=== PATIENT | female | born 2000 | race African-American/Black ===

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

== ENCOUNTER 2020-07-17 18:14 | Emergency (ER) | payer BC, SELFPAY ==
[2020-07-17 18:15] VITALS: BP 132/95; PULSE 99; RESP 16; TEMP 36.6; O2SAT 99; BMI 24.2
[2020-07-17 18:27] VITALS: BP 130/89; PULSE 95; RESP 18; O2SAT 98
--- NOTE | 2020-07-17 18:45 | ED.DCSUM_ITS ---
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 Currently being treated for UTI on Bactrim. Says last night has had intermittent episodes of accelerated heart rate. No syncope. No history of DVT or PE. No recent travel, surgery or immobilization. She is not on control. Physical Examination: Appearing 20-year-old female no acute distress vital signs stable afebrile. Current heart rate 95. Pulse ox 90% on room air no signs hypoxia. H EENT exam unremarkable. Neck nontender no JVD. Lungs clear to auscultation bilaterally. Heart regular rhythm no murmur. Rate about 92-98 on my exam. Chest were nontender. Abdomen soft nontender. Normal bowel sounds no peritoneal signs. Remedies moves all 4. Calves are nontender without edema or cords. Neurologically she is awake alert with no focal motor deficits. Skin unremarkable. Back unremarkable. Test Results: EKG shows normal sinus rhythm rate of 96 with no acute signs of WI or ischemia. Currently not in SVT. Normal. White count 9 hemoglobin 15. Electrolytes normal. Troponin normal. Chest x-ray portable 1 view shows no acute abnormality. Normal cardiac silhouette. Read both by myself and radiologist. Emergency Department Course and Treatment: Patient with a known history of PSVT with intermittent accelerated heart rate. Currently not in that. Repeat exam patient doing well at 8:45 PM. She is had no further episodes of accelerated heart rate here. She will be discharged home. He is comfortable with the plan. Treatment Plan: Continue her current medications. Return if worse. Disposition: Discharge Impression: Palpitations History of prior SVT This note was generated with [employer] dictation software. It may contain incorrect words, spelling, and punctuation that were not noted in review of the chart prior to signing ED Disposition - Plan for ED Patient: Referrals: Care Physician,No Primary [Primary Care Provider] -
[2020-07-17 19:01] VITALS: O2SAT 99
--- NOTE | 2020-07-17 19:10 | RAD_ITS ---
STUDY: X-RAY CHEST REASON FOR EXAM: Female, 20 years old. palpitations TECHNIQUE: AP portable COMPARISON: None. FINDINGS: The lungs are clear and expanded. There is no demonstrated pleural abnormality. Normal size heart. Normal mediastinum and greer. Normal visualized pulmonary arteries. Normal visualized aortic arch and descending thoracic aorta. Normal visualized thoracic spine. Normal visualized ribs, clavicles, and shoulders. There is no demonstrated abnormality of the visualized soft tissue structures of the upper abdomen. RAD/Chest 1 View (Portable) IMPRESSION: Normal x-ray examination of the chest. Electronically Signed: Xu Dao MD at 19:24 EDT , Service support ,
[2020-07-17 19:35] LABS: Absolute Neutrophil Count 3.6 X10^3/uL (2.0-7.7); Basophil# 0.03 X10^3/uL; Basophil% 0.4 % (0-1); Eosinophil# 0.27 X10^3/uL; Eosinophils% 3.8 % (0-5); Hematocrit 44.5 % (37-47); Hemoglobin 15.1 g/dL (12.0-15.0); Lymphocyte % 36.6 % (19-41); Mean Corp Hgb Conc 33.9 g/dL (32-36); Mean Corpuscular Hgb 29.4 pg (27.0-32.0); Mean Corpuscular Volume 86.7 fL (81-99); Mean Platelet Vol. 9.2 fl (6.2-12.0); Monocyte# 0.64 X10^3/uL; NRBC Flagged by Analyzer 0 % (0-5); Neutrophil # 3.55 X10^3/uL (2.7-7.7); Neutrophil % 49.9 % (47-70); Platelet Count 400 K/mm3 (150-450); RBC Distribution Width CV 12.5 % (11.6-14.6); RBC Distribution Width SD 39.8 fl (35.1-43.9); Red Blood Count 5.13 M/mm3 (4.2-5.4); White Blood Count 7.1 K/mm3 (4.4-11.0)
--- NOTE | 2020-07-17 19:47 | EKG12_ITS ---
Test Reason : PALPS Blood Pressure : / mmHG Vent. Rate : 096 BPM Atrial Rate : 096 BPM P-R Int : 130 ms QRS Dur : 082 ms QT Int : 346 ms P-R-T Axes : 045 058 011 degrees QTc Int : 437 ms Normal sinus rhythm Normal ECG Confirmed by ANNY MAZARIEGOS, GRACY ([id number]), newspaper editor managing EZIO CALVILLO ([id number]) on 07/23/2020 10:17:22 AM Referred By: CHONG Confirmed By:GRACY MCCORMICK MD
[2020-07-17 19:50] LABS: Anion Gap 5 (5-15); BUN 11 mg/dL (7-18); BUN/Creat Ratio 12.1 RATIO (10-20); Calcium,Total 9.1 mg/dL (8.5-10.1); Chloride 109 mmol/L (98-107); Creatinine, Serum 0.91 mg/dL (0.55-1.02); EST Glomerular Filtration Rate 84 mL/min (>60); Est Glom Filt Rate - Afr Amer 101 mL/min (>60); Estimated Creatinine Clearance 103.06 ml/min; Glucose 92 mg/dL (74-106); Potassium 3.9 mmol/L (3.5-5.1); Sodium Level 139 mmol/L (136-145)
--- NOTE | 2020-07-17 21:03 | ED.DEP ---
ED Disposition - Plan for ED Patient: Disposition: Home or Assisted Living Instructions: ED Palpitations Referrals: Andrew Navas MD [STAFF PHYSICIAN] - As Needed Additional Instructions: Continue your current medications. Follow-up with your doctor or a local primary care physician as needed. Return if feeling worse.
[2020-07-17 21:09] VITALS: BP 114/76; PULSE 81; RESP 18; O2SAT 98
== END 2020-07-17 21:10 | disposition home or self-care (01) ==
PROVIDERS: Emergency Provider Emergency Medicine
DX: R00.2 Palpitations (principal); N39.0 Urinary tract infection, site not specified; F41.9 Anxiety disorder, unspecified; F90.9 Attention-deficit hyperactivity disorder, unspecified type; Z79.2 Long term (current) use of antibiotics; Z86.79 Personal history of other diseases of the circulatory system; Z79.899 Other long term (current) drug therapy
CPT/HCPCS: 71045; 80048; 84484; 85025; 93005; 99283; A4216

== ENCOUNTER 2020-08-03 13:55 | Emergency (ER) | payer BC, SELFPAY ==
[2020-08-03 13:55] VITALS: BP 141/92; PULSE 84; RESP 16; TEMP 36.2; O2SAT 100; BMI 25.2
--- NOTE | 2020-08-03 14:03 | ED.DCSUM_ITS ---
History of Present Illness Chief Complaint: Dental Informant: Patient Onset: Yesterday Context: Gradual Onset Timing: Continuous Current Severity: Moderate Maximum Severity: Moderate Narrative: The patient is an otherwise healthy 20-year-old female who presents to the emergency department dental pain. Patient states that she has a known cavity in her left lower jaw. She states today, she began to get a dull ache in that area. States feels that it spreading to her face. She denies any trouble speaking or swallowing. She denies fever or chills. She states she did see a dentist about 3 months ago just for cleaning. She denies any trauma to the area. Prior similar symptoms: No Recent Illness/Hospitalization: No Past Medical History - Allergies and Home Meds Allergies/Adverse Reactions: Allergies No Known Allergies Allergy (Verified 08/03/20 13:55) Primary Care Physician: Care Physician,No Primary [Primary Care Provider] - Prior records reviewed: Yes Past Medical History: None Surgical History: no surgical history Smoking Status: Never smoker Review of Systems General: Denies: Chills, Fever, Sweats Eyes: Denies: Visual changes - bilaterally, Diplopia ENT: Reports: - - Dental pain. Denies: Rhinorrhea, Sore throat Cardiovascular: Denies: Chest pain, Palpitations Respiratory: Denies: Dyspnea, Cough, Dyspnea on exertion Gastrointestinal: Denies: Abdominal pain, Nausea, Vomiting, Diarrhea, Melena, Hematochezia Genitourinary: Denies: Dysuria, Hematuria, Frequency Musculoskeletal: Denies: Back pain, Extremity Pain Skin: Denies: Rash, Wounds Neurological: Denies: Headache, Weakness, Numbness Physical Exam Vital Signs/Narrative: Vital Signs Temp Pulse Resp BP Pulse Ox 08/03/20 13:55 97.1 F L 84 16 141/92 H 100 Inital Vital Signs reviewed: Yes General: Well nourished, Well developed, No Acute Distress Head: Normocephalic, Atraumatic Eyes: Perrl, EOMI ENT: Moist mucous membranes, No rhinorrhea, - - There is mild widespread dental caries. She has market tenderness to palpation at tooth #17. There is some erythema of the gumline and directly behind appears to have an impacted wisdom tooth. There is no trismus or stridor. The submental space is soft. Neck: Supple, Nontender Cardiovascular: Regular rate, Regular rhythm, No murmurs Respiratory: No distress, CTA bilaterally, Chest nontender Abdomen: Soft, Nontender, Nondistended, Normal bowel sounds Back: Nontender, Normal Inspection Extremities: Nontender, No edema Skin: Normal color, No rash Neurological: Alert, Oriented x3, Cranial nerves II-XII grossly intact, Normal Strength, Normal Sensation Psychological: Normal affect, Normal Mood Diagnostic/Tx/Re-eval - Medical Decision Making Patient presents with dental pain likely secondary to cavity with periapical abscess. There is no evidence of Mike angina. She has no trismus or stridor. The submental space is soft. The patient will be treated with anti- inflammatories and antibiotics along with given outpatient dental resources. Sh e will be discharged home. Impression Periapical abscess tooth 18 ED Disposition - Plan for ED Patient: Instructions: ED ABSCESS DENTAL Prescriptions: Amox/Clavulanate Tablet [Augmentin Tablet] 875 mg PO Q12H #20 tab Prescription Printed Ibuprofen [Motrin] 800 mg PO TID PRN PRN #20 tab PRN Reason: Pain Or Fever Prescription Printed Referrals: Care Physician,No Primary [Primary Care Provider] -
[2020-08-03] MEDS: Amox/Clavulanate 875 MG Tablet PO (14:17)
[2020-08-03] MEDS: Ibuprofen 600 MG Tablet PO (14:17)
== END 2020-08-03 14:22 | disposition home or self-care (01) ==
LOC: ED 14:15
PROVIDERS: Emergency Provider Emergency Medicine
DX: K04.7 Periapical abscess without sinus (principal)
CPT/HCPCS: 99283

== ENCOUNTER 2022-09-13 04:57 | Emergency (ER) | payer BC, SELFPAY ==
[2022-09-13 04:58] VITALS: BP 106/65; PULSE 99; RESP 16; TEMP 37.3; O2SAT 97; BMI 23.1
--- NOTE | 2022-09-13 05:06 | CT_ITS ---
EXAM: CT abdomen and pelvis with contrast. HISTORY: abdominal pain -- IV PO Contrast TECHNIQUE: CT Abdomen And Pelvis W/ Contrast Injection. A radiation dose optimization technique was used for this scan. COMPARISON: Noncontrast CT of the abdomen and pelvis from September 26, 2019. LIMITATIONS: None. LOWER CHEST: Normal. LIVER: Normal. GALLBLADDER: Normal. BILE DUCTS: Normal. PANCREAS: Normal. SPLEEN: Normal. ADRENAL GLANDS: Normal. KIDNEYS/URETERS/BLADDER: Normal. AORTA: Normal caliber. BOWEL/MESENTERY: No small bowel obstruction. No definite colitis. Mesenteric lymph nodes are increased in number. The majority are subcentimeter in short axis. APPENDIX: Normal. PERITONEUM: Normal. REPRODUCTIVE ORGANS: An intrauterine device is identified. BONES/SOFT TISSUES: No acute fracture. OTHER: None. CONCLUSION: No acute abnormality. Electronically Signed: Oleksandr Escobar MD at 7:27 EDT , CT/Abdomen/Pelvis WITH Contrast IMPRESSION: undefined
--- NOTE | 2022-09-13 05:07 | ED.VIS.GI ---
HPI HPI - GI History of Present Illness Chief Complaint: Abd Pain Detail of Chief Complaint: Abdominal pain since yesterday Informant: patient Narrative Narrative: Patient presents to the ER with complaint not feeling well since yesterday. Patient states that she developed a cough. She had nausea. Today she woke up and had more severe pain to the right lower quadrant. She rates it a 6 out of 10. Patient's had 2 watery stools. Patient states that she was at the wellness center at the [facility] and was just diagnosed with influenza A. Patient denies prior abdominal surgeries. She has had nausea but no vomiting. She has had a fever. Patient denies urinary symptoms. PFSH PFSH Home Medications sertraline 25 mg tablet 100 mg PO DAILY 07/17/20 [History Last Taken Unknown] ibuprofen 800 mg tablet 800 mg PO TID PRN PRN Pain Or Fever #20 tabs 08/03/20 [Rx Last Taken Unknown] lisdexamfetamine 20 mg capsule (Vyvanse) 20 mg PO DAILY 09/13/22 [History Last Taken Unknown] Allergy/AdvReac Type Severity Reaction Status Date / Time No Known Allergies Allergy Verified 08/03/20 13:55 Social History Smoking Status: Never smoker ROS ROS ED Review of Systems ROS Unobtainable: other Constitutional Constitutional ED: Reports fever(s) and lethargy; Denies chills, sweats or weight loss Eyes Eyes: Denies blurry vision, change in vision or diplopia ENT ENT ED: Denies rhinorrhea or sore throat Cardiovascular Cardiovascular: Denies chest pain, orthopnea or racing heartbeat Respiratory/Chest Respiratory/Chest: Denies cough, dyspnea, dyspnea on exertion, orthopnea or sputum Gastrointestinal Gastrointestinal: Reports abdominal pain, diarrhea and nausea; Denies vomiting Genitourinary Genitourinary ED: Denies dysuria, hematuria or urinary frequency Musculoskeletal Musculoskeletal: Denies arthralgias, back pain, myalgias or neck pain Integumentary Denies abscess, Abrasions or rash Neurologic Neurologic: Denies headache(s) or weakness Psychiatric Psychiatric: Denies anxiety, depression or suicidal thoughts Endocrine Endocrinology: Denies polydipsia, polyphagia or polyuria Hematologic/Lymphatic Hematologic/Lymphatic: Denies easy bleeding, easy bruising or lymphadenopathy Allergic/Immunologic Allergic/Immunologic ED: Denies mouth swelling, tongue swelling or urticaria EXAM Physical Exam Const Vital Signs: 10/31/22 04:58 09/13/22 07:13 Temperature 99.1 F Temperature Source Oral Pulse Rate 99 103 H Respiratory Rate 16 18 Blood Pressure 106/65 100/57 L Blood Pressure Mean 78 71 Pulse Ox 97 100 Oxygen Delivery Method Room Air Room Air Positive well nourished and well developed General Appearance ED: well developed and NAD HEENT Reports TM's clear and moist mucous membranes normocephalic and atraumatic; Negative for trauma or tenderness Tympanic Membrane ED: Yes TM's clear Eyes PERRL and EOMs intact bilaterally General Eye ED: Negative for pale conjunctiva or scleral icterus Neck no lymphadenopathy, supple and no JVD General: Negative for tenderness Chest Wall inspection of chest normal and palpation of chest normal Chest: Negative for tenderness Resp normal respiratory effort and clear to auscultation bilaterally Effort and Inspection: Negative for respiratory distress or pain with movement Auscultation: Negative for rhonchi, wheezes or diminished lung sounds Cardio regular rate, regular rhythm, S1 normal heart sound, S2 normal heart sound and no murmurs Peripheral Pulses: pulses 2+ throughout GI normal to inspection, nondistended, normoactive bowel sounds, soft to palpation, non-distended and no masses GI Narrative: Tenderness palpation of the right lower quadrant with guarding. There is no rebound, rigidity, or peritoneal signs. Back/Spine no CVA tenderness and no thoracic nor lumbar tenderness Extremity normal to inspection General Extremety ED: Negative for edema General Extremity: Negative for edema Neuro oriented x3, CN's II-XII intact bilaterally, no sensory deficits noted and gait normal Sensorium / Orientation: awake, alert, oriented to person, oriented to place and oriented to time Motor Exam: strength 5/5 throughout and strength abnormal Psych mental status grossly normal Skin no rashes or lesions noted and no wounds MDM MDM MDM Narrative Medical decision making narrative: Patient did not want thing for pain. IV line established. CBC with differential was normal. Chemistries unremarkable. hCG was negative. CT scan of the abdomen pelvis with IV and p.o. contrast ordered and results are pending. Care of patient turned over to morning physician awaiting CT results and final disposition. Lab Data Labs: Laboratory Results - last 24 hr 09/13/22 09/13/22 09/13/22 05:00 05:00 05:00 WBC 6.1 RBC 4.83 Hgb 14.6 Hct 43.0 MCV 89.0 MCH 30.2 MCHC 34.0 RDW Std Deviation 41.8 RDW Coeff of Danielle 12.8 Plt Count 347 MPV 9.0 Immature Gran % (Auto) 0.300 Neut % (Auto) 78.1 H Lymph % (Auto) 11.5 L [place] % (Auto) 8.2 Eos % (Auto) 1.6 Baso % (Auto) 0.3 Absolute Neuts (auto) 4.8 Absolute Lymphs (auto) 0.70 L Nucleated RBC % 0 Sodium 138 Potassium 3.5 Chloride 106 Carbon Dioxide 25.0 Anion Gap 7 BUN 8 Creatinine 0.84 Estim Creat Clear Calc 109.79 Est GFR (MDRD) Af Amer 108 Est GFR (MDRD) Non-Af 89 BUN/Creatinine Ratio 9.5 L Glucose 109 H Calcium 8.7 Serum , Qual NEGATIVE Urine Color Urine Clarity Urine pH Ur Specific [place] Urine Protein Urine Glucose (UA) Urine Ketones Urine Occult Blood Urine Nitrite Urine Bilirubin Urine Urobilinogen Ur Leukocyte Esterase Urine RBC Urine WBC Ur Squamous Epith Cells Urine Bacteria Urine Mucus 09/13/22 05:15 WBC RBC Hgb Hct MCV MCH MCHC RDW Std Deviation RDW Coeff of Danielle Plt Count MPV Immature Gran % (Auto) Neut % (Auto) Lymph % (Auto) [place] % (Auto) Eos % (Auto) Baso % (Auto) Absolute Neuts (auto) Absolute Lymphs (auto) Nucleated RBC % Sodium Potassium Chloride Carbon Dioxide Anion Gap BUN Creatinine Estim Creat Clear Calc Est GFR (MDRD) Af Amer Est GFR (MDRD) Non-Af BUN/Creatinine Ratio Glucose Calcium Serum , Qual Urine Color Yellow Urine Clarity Sl. Cloudy Urine pH 5.0 Ur Specific [place] 1.025 Urine Protein 30 H Urine Glucose (UA) Normal Urine Ketones 150 A* Urine Occult Blood 150 H Urine Nitrite Negative Urine Bilirubin 1 H Urine Urobilinogen 4 H Ur Leukocyte Esterase 25 H Urine RBC 0-5 SEEN Urine WBC 0-5 SEEN Ur Squamous Epith Cells 10-25 SEEN Urine Bacteria 1+ Urine Mucus 0 SEEN Discharge Plan Triage Chief Complaint: Abd Pain ED Provider: Mary Ellen Sainz Dx/Rx/DC Orders Clinical Impression: Abdominal pain, Influenza Prescriptions: No Action sertraline 25 MG tablet 100 mg PO DAILY ibuprofen 800 MG tablet 800 mg PO TID PRN PRN (Reason: Pain Or Fever) Qty: 20 0RF Vyvanse 20 mg capsule 20 mg PO DAILY Label Comments: TAKE 1 CAPSULE BY MOUTH IN THE MORNING Primary Care Provider: Care Physician,No Primary Referrals: Care Physician,No Primary [Primary Care Provider] -
[2022-09-13] MEDS: 0.9% Normal Saline 1,000 ML 125 ML IV (05:15)
[2022-09-13 05:24] LABS: Mucous, Urine 0 SEEN /hpf (<or=2+)
[2022-09-13 05:25] LABS: Absolute Neutrophil Count 4.8 X10^3/uL (2.0-7.7); Basophil# 0.02 X10^3/uL; Basophil% 0.3 % (0-1); Eosinophils% 1.6 % (0-5); Hemoglobin 14.6 g/dL (12.0-15.0); Lymphocyte % 11.5 % (19-41); Mean Corpuscular Hgb 30.2 pg (27.0-32.0); Monocyte% 8.2 % (0-10); NRBC Flagged by Analyzer 0 % (0-5); Neutrophil # 4.77 X10^3/uL (2.7-7.7); Neutrophil % 78.1 % (47-70); Platelet Count 347 K/mm3 (150-450); RBC Distribution Width CV 12.8 % (11.6-14.6); RBC Distribution Width SD 41.8 fl (35.1-43.9); Red Blood Count 4.83 M/mm3 (4.2-5.4); White Blood Count 6.1 K/mm3 (4.4-11.0)
[2022-09-13 05:29] LABS: Color, Urine Yellow (Yellow); Glucose, Dipstick Normal (Normal); Leukocyte Esterase-Dipstick 25 /ul (Negative); Nitrite-Dipstick Negative (Negative); Occult Blood-Urine 150 /ul (Negative); Protein-Dipstick 30 mg/dl (Negative); Specific Gravity, Urine 1.025 (1.002-1.030); Urine Clarity Sl. Cloudy (Clear); Urine Urobilinogen 4 mg/dl (Normal)
[2022-09-13 05:32] LABS: Urine Bilirubin Dipstick 1 mg/dL (Negative)
[2022-09-13 05:34] LABS: Ketone-Dipstick 150 mg/dl (Negative)
[2022-09-13 05:36] LABS: Bacteria 1+ /hpf (None Seen); Red Blood Cells-Urine 0-5 SEEN /hpf (0-5); Squamous Epithelial Cells - UA 10-25 SEEN /hpf (5-10); White Blood Cells 0-5 SEEN /hpf (0-5)
[2022-09-13 05:40] LABS: Anion Gap 7 (5-15); BUN 8 mg/dL (7-18); BUN/Creat Ratio 9.5 RATIO (10-20); Calcium,Total 8.7 mg/dL (8.5-10.1); Chloride 106 mmol/L (98-107); Creatinine, Serum 0.84 mg/dL (0.55-1.02); EST Glomerular Filtration Rate 89 mL/min (>60); Est Glom Filt Rate - Afr Amer 108 mL/min (>60); Estimated Creatinine Clearance 109.79 ml/min; Glucose 109 mg/dL (74-106); Potassium 3.5 mmol/L (3.5-5.1); Sodium Level 138 mmol/L (136-145)
[2022-09-13 05:43] LABS: Internal QC Validated? YES +Cl - CLEAR BKGD; Pregnancy, Serum, hCG Quali. NEGATIVE Negative
[2022-09-13 07:13] VITALS: BP 100/57; PULSE 103; RESP 18; O2SAT 100
[2022-09-13 07:50] VITALS: BP 100/57
== END 2022-09-13 07:53 | disposition home or self-care (01) ==
PROVIDERS: Emergency Provider Emergency Medicine; Visit Provider Emergency Medicine
DX: R10.9 Unspecified abdominal pain (principal); J11.1 Influenza due to unidentified influenza virus with other respiratory manifestations; R11.0 Nausea
CPT/HCPCS: 74177; 80048; 81001; 84703; 85025; 99282; J7030; Q9967